=== PATIENT | female | born 1960 | race Caucasian/White ===

== ENCOUNTER 2022-04-01 11:33 | Inpatient (IN) | payer SELFPAY ==
[~2022-04-01] VITALS: Ht 149.9 cm; Wt 54.0 kg
[2022-04-01 11:49] VITALS: BP 127/83
[2022-04-01] MEDS ORDERED: ALBUTEROL SULFATE/IPRATROPIU 3 ML SOL IH ONE (12:05)
--- NOTE | 2022-04-01 12:05 | NUR ---
TO ER BED 12
--- NOTE | 2022-04-01 12:12 | NUR ---
Dr. Zuniga evaluating pt at bedside
--- NOTE | 2022-04-01 12:16 | NUR ---
RT at bedside for ABG and neb tx.
--- NOTE | 2022-04-01 12:20 | NUR ---
Francisco marmolejo in [facility] - 04/01/22 at 1232 by HAYLEE Blood work, kalen swab collected and handed to CPT Hank
--- NOTE | 2022-04-01 12:20 | NUR ---
Blood work, kalen and flu swab collected and handed to CPT Hank
--- NOTE | 2022-04-01 12:20 | NUR ---
61 y/o F BIB self from home c/o left sided abd pain, LLE cramping and SOB. Patient A&Ox4, ambulatory with assistance, states took sleep aid at 10PM last night and has since been "tired and dizzy." Patient noted with SpO2 79% on room air; placed on 15L via NRB. Patient states 10/10 RUQ abd pain, strong/intermittent, radiating to generalized abd. +SOB, denies chest pain, urinary symptoms, fever, chills. Tenderness with palp to general abd. Lung rizvi rales. hospital monitor in place. Bed locked in lowest position, side rails x 1. PMH: gastritis, HTN, asthma, COPD Meds: sleep med, salmeterol inhaler NKDA Sx: cholecystectomy, appendectomy, ovary sx, hand sx.
--- NOTE | 2022-04-01 12:28 | NUR ---
Pt placed onto 4L via N/C by RT SpO2 97%
--- NOTE | 2022-04-01 12:32 | NUR ---
US tech at bedside
[2022-04-01 12:39] LABS: BASOPHILS # (AUTO) 0.1 K/uL (0.00-0.22); BASOPHILS % (AUTO) 0.7 % (0.0-2.0); EOSINOPHILS % (AUTO) 0.4 % (0.0-4.0); HEMATOCRIT 47.5 % (36-48); HEMOGLOBIN 16.3 g/dL (12.0-16.0); LYMPHOCYTES # (AUTO) 1.5 K/uL (2.5-16.5); LYMPHOCYTES % (AUTO) 12.6 % (20.5-51.1); MEAN CORPUSCULAR HEMOGLOBIN 32 pg (27-31); MEAN CORPUSCULAR HGB CONC 34 g/dL (33-37); MEAN CORPUSCULAR VOLUME 93.1 fL (80-94); MONOCYTES # (AUTO) 0.9 K/uL (0.8-1.0); MONOCYTES % (AUTO) 7.8 % (1.7-9.3); NEUTROPHILS # (AUTO) 9.5 K/uL (1.8-7.7); NEUTROPHILS % (AUTO) 78.5 % (42.2-75.2); PLATELET COUNT (AUTO) 191 K/uL (140-450); RED CELL DISTRIBUTION WIDTH 13.9 % (11.6-13.7)
--- NOTE | 2022-04-01 12:43 | NUR ---
Pt transported to CT via rney.
--- NOTE | 2022-04-01 12:53 | NUR ---
Patient returned from CT via gurney and placed back onto flight attendant.
[2022-04-01 12:59] LABS: ALBUMIN 3.1 g/dL (3.4-5.0); ANION GAP 11.8 (8-16); CARBON DIOXIDE 30.8 mmol/L (21-32); CREATININE 0.9 mg/dL (0.6-1.3); POTASSIUM 3.6 mmol/L (3.5-5.1); TOTAL BILIRUBIN 0.7 mg/dL (0.0-1.0)
[2022-04-01 13:00] LABS: LIPASE 99 U/L (73-393)
[2022-04-01 13:03] LABS: ACETAMINOPHEN < 0.5 ug/ml (10-30); SALICYLATE < 2.8 mg/dL (2.8-20.0)
--- NOTE | 2022-04-01 13:16 | NUR ---
PT UNABLE TO PROVIDE URINE AT THIS TIME. PT GIVEN CUP OF WATER AND JUICE PER DR RAHMAN
[2022-04-01] MEDS ORDERED: ZOLPIDEM 5 MG TAB PO PRN (13:40)
[2022-04-01] MEDS ORDERED: DOCUSATE SODIUM 100 MG GELCAP PO PRN (13:40)
[2022-04-01] MEDS ORDERED: HYDROcodone/APAP 7.5/325 MG 1 TAB PO PRN (13:40)
[2022-04-01] MEDS ORDERED: POTASSIUM CHLORIDE 10 MEQ TABER PO PRN (13:40)
[2022-04-01] MEDS ORDERED: guaiFENesin DM 200/20 MG-10 ML 10 ML UDC PO PRN (13:40)
[2022-04-01] MEDS ORDERED: ONDANSETRON 4 MG/2 ML VIAL IM/IVP PRN (13:40)
[2022-04-01] MEDS ORDERED: ALBUTEROL SULFATE/IPRATROPIU 3 ML SOL IH PRN (13:45)
--- NOTE | 2022-04-01 13:58 | NUR ---
Patient desaturated to 89%; noted with N/C off. Placed back onto 4L N/C and repositioned upright in bed. SpO2 95% on 4L
--- NOTE | 2022-04-01 14:01 | NUR ---
Lab at bedside
[2022-04-01] MEDS ORDERED: cefTRIAXone 1,000 MG VIAL ONE (14:04)
[2022-04-01 14:13] LABS: FREE T4 (FREE THYROXINE) 1.04 ng/dL (0.76-1.46); MAGNESIUM 2.2 mg/dL (1.8-2.4); THYROID STIMULATING HORMONE 0.86 uIU/mL (0.34-3.74)
[2022-04-01] MEDS: NACL 0.9% 1,000 ML IV SCH (14:13)
--- NOTE | 2022-04-01 14:30 | NUR ---
Bedpan provided; patient attempted to void with no output.
[2022-04-01] MEDS: ACETAMINOPHEN 325 MG TAB PO PRN (16:11)
--- NOTE | 2022-04-01 16:14 | NUR ---
Patient resting in semi-fowlers position with awake overnight monitor in place. Bed locked in lowest position, side rails x 1. 4L N/C in place SpO2 96%
--- NOTE | 2022-04-01 16:45 | NUR ---
GOT REPORT FROM THE ER NURSE , MELANIE YOUNG IN 2L NC, WAS CONFUSED NOT ABLE TO ANSWER THE QUESTION VIA MANAGING PRINCIPAL. [id number]
--- NOTE | 2022-04-01 16:50 | NUR ---
Patient will be admitted to care of Dr. Lockwood. Admited to Telemetry. Will go to room 105B. Belongings list completed. Report to PATRICE Velasquez.
--- NOTE | 2022-04-01 19:30 | NUR ---
RECEIVED ENDORSEMENT FROM DAY SHIFT NURSE FOR CONTINUITY OF CARE. PT IS WITH PARTIAL CONFUSION. PT IS USING O2 INHALATION VIA NASAL CANULA AT 3LPM.. PT IS AMBULATORY. IV SITE IS AT RIGHT AC 20G, INTACT AND PATENT. PT IS WITH REGULAR DIET. DAUGHTER IS AT BED SIDE.
[2022-04-01 20:00] VITALS: BP 116/70
--- NOTE | 2022-04-01 20:00 | NUR ---
RECEIVED INFO FROM RADIOLOGY, PT WOULD HAVE CT SCAN OF ABDOMEN & PELVIS AND PT WILL BE ON NPO AFTER MIDNIGHT. CONSENT DONE BY DAUGHTER AND IS ON FILE.
--- NOTE | 2022-04-01 20:40 | NUR ---
PT TAKING OFF HER NASAL CANULA REPEATEDLY, PT IS CONFUSE.
--- NOTE | 2022-04-01 21:00 | NUR ---
PT IS NOT COOPERATIVE AND CONFUSE. ATTEMPT TO GET OUT OF BED.
[2022-04-01 21:14] LABS: CHOL/HDL RATIO 3.6 (1-4.5)
[2022-04-01 22:24] LABS: BARBITURATE, URINE NEGATIVE ng/ml (NEG <=200); BENZODIAZEPINE, URINE NEGATIVE ng/mL (NEG <=200); CANNABINOID, URINE NEGATIVE ng/mL (NEG <=50); COCAINE, URINE NEGATIVE ng/mL (NEG <=300); OPIATE, URINE NEGATIVE ng/mL (NEG <=2000); PHENCYCLIDINE SCREEN,URINE NEGATIVE ng/mL (NEG <=25)
--- NOTE | 2022-04-01 23:30 | NUR ---
PT IS WITH CONFUSION. PT ENTER RESTROOM WITHOUT KNOWING WHAT TO DO. GUIDED AND ASSIST PT TO GO BACK TO BED.
[2022-04-02] VITALS: BP 136/87
--- NOTE | 2022-04-02 02:00 | NUR ---
PT IS SLEEPING WELL.
[2022-04-02 04:00] VITALS: BP 128/72
--- NOTE | 2022-04-02 04:30 | NUR ---
PT IS ASLEEP.
[2022-04-02] MEDS: ALBUTEROL SULFATE/IPRATROPIU 3 ML SOL IH SCH ×3 (06:41→19:10)
[2022-04-02 06:54] LABS: BASOPHILS # (AUTO) 0.1 K/uL (0.00-0.22); BASOPHILS % (AUTO) 0.6 % (0.0-2.0); EOSINOPHILS % (AUTO) 0.2 % (0.0-4.0); HEMATOCRIT 46.9 % (36-48); HEMOGLOBIN 16.2 g/dL (12.0-16.0); LYMPHOCYTES # (AUTO) 1.4 K/uL (2.5-16.5); LYMPHOCYTES % (AUTO) 13.3 % (20.5-51.1); MEAN CORPUSCULAR HEMOGLOBIN 32 pg (27-31); MEAN CORPUSCULAR HGB CONC 35 g/dL (33-37); MEAN CORPUSCULAR VOLUME 93.4 fL (80-94); MONOCYTES # (AUTO) 0.7 K/uL (0.8-1.0); MONOCYTES % (AUTO) 6.5 % (1.7-9.3); NEUTROPHILS # (AUTO) 8.4 K/uL (1.8-7.7); NEUTROPHILS % (AUTO) 79.4 % (42.2-75.2); PLATELET COUNT (AUTO) 191 K/uL (140-450); RED BLOOD CELL COUNT(AUTO) 5.02 MIL/uL (4.20-5.40); RED CELL DISTRIBUTION WIDTH 13.7 % (11.6-13.7); WHITE BLOOD COUNT (AUTO) 10.5 K/uL (4.8-10.8)
[2022-04-02] MEDS: NACL 0.9% 1,000 ML IV SCH ×2 (07:05→23:00)
--- NOTE | 2022-04-02 07:15 | NUR ---
BREATHING TREATMENT NOT GIVEN DUE TO PT SLEEPING. WILL CHECK LATER.
--- NOTE | 2022-04-02 07:35 | NUR ---
PT IS ASLEEP AND ON STABLE CONDITION. NO SOB OR DISTRESS. PT TEND TO TAKE OFF THE NASAL CANULA WHILE SLEEPING.
[2022-04-02 07:39] LABS: ANION GAP 12.2 (8-16); CARBON DIOXIDE 32.1 mmol/L (21-32); CREATININE 0.8 mg/dL (0.6-1.3); POTASSIUM 4.3 mmol/L (3.5-5.1)
--- NOTE | 2022-04-02 07:45 | NUR ---
ENDORSED TO DAY SHIFT NURSE FOR CONTINUITY OF CARE. PT IS ASLEEP.
[2022-04-02 08:00] VITALS: BP_SYST 124; BP_SYST 127; BP_DIAS 74
[2022-04-02] MEDS: PANTOPRAZOLE 40 MG TABEC PO SCH (09:44)
--- NOTE | 2022-04-02 09:49 | NUR ---
PATIENT HAS BEEN SCREENED AND CATEGORIZED MODERATE NUTRITION RISK. PATIENT WILL BE SEEN WITHIN 3-5 DAYS OF ADMISSION. REVIEWED BY DIONNE MCLEOD RD
[2022-04-02 12:00] VITALS: BP 130/78
[2022-04-02 12:08] LABS: T4 (THYROXINE) 6.2 ug/dL (4.5-12.0)
[2022-04-02] MEDS: methylPREDNISolone SS 40 MG/ML VIAL IVP SCH ×2 (13:36→21:00)
[2022-04-02 16:00] VITALS: BP 131/75
--- NOTE | 2022-04-02 19:30 | NUR ---
RECEIVED REPORT FROM DAY SHIFT NURSE NUBIA FOR CONTINUITY OF CARE. PATIENT IS A&O X4, BELARUSIAN SPEAKING. PATIENT IS ON 4L NC; BREATHING IS NORMAL WITH SYMMETRICAL RISE AND FALL OF CHEST. IV IS A 20G RAC; RUNNING NS 60. PATIENT IS LYING SEMI-FOWLERS IN BED, VISITING WITH FAMILY. BED IS IN LOWEST POSITION, WHEELS LOCKED, CALL LIGHT IN PLACE. WILL CONTINUE TO OBSERVE PATIENT.
[2022-04-02 20:00] VITALS: BP 123/73
[2022-04-03] VITALS: BP 107/57
[2022-04-03] MEDS: NACL 0.9% 1,000 ML IV SCH (03:20)
[2022-04-03 03:51] LABS: APPEARANCE,URINE CLEAR (CLEAR); BILIRUBIN,URINE NEGATIVE (NEGATIVE); BLOOD, URINE NEGATIVE (NEGATIVE); COLOR,URINE YELLOW (YELLOW); LEUKOCYTE ESTERASE ,URINE NEGATIVE (NEGATIVE); NITRITE, URINE NEGATIVE (NEGATIVE); PH,URINE 5.5 (5.0-9.0); UGLUCOSE NEGATIVE (NEGATIVE)
[2022-04-03 04:00] VITALS: BP 106/68
--- NOTE | 2022-04-03 04:00 | NUR ---
PATIENT HAS SLEPT THROUGHOUT THE NIGHT. PATIENT WOKE UP AND ASKED TO BE UNHOOKED FROM IV TO USE BATHROOM. PATIENT WAS DISCONNECTED AND AMBULATED WITHOUT DIFFICULTY. URINE SAMPLE WAS OBTAINED FROM PATIENT. PATIENT ASKED TO SHOWER SO SHE COULD GET DRESSED; PATRICE BUCKLEY TRANSLATED AND EXPLAINED TO THE PATIENT THAT IT WAS JUST AFTER 0330 IN THE MORNING. PATIENT HADN'T REALIZED AND AGREED TO GO BACK TO BED. PATIENT'S O2 REMAINS BETWEEN 90 -93% ON 4L NC. RT ARY HAS BEEN IN TO SEE PATIENT AND HER O2 SATURATION IS BEING MONITORED WITH BEDSIDE MONITOR. WILL CONTINUE TO OBSERVE PATIENT.
[2022-04-03] MEDS: methylPREDNISolone SS 40 MG/ML VIAL IVP SCH ×3 (05:02→20:48)
[2022-04-03 07:02] LABS: BASOPHILS % (AUTO) 0.2 % (0.0-2.0); HEMATOCRIT 44.3 % (36-48); HEMOGLOBIN 15.2 g/dL (12.0-16.0); LYMPHOCYTES # (AUTO) 0.3 K/uL (2.5-16.5); LYMPHOCYTES % (AUTO) 4.7 % (20.5-51.1); MEAN CORPUSCULAR HEMOGLOBIN 32 pg (27-31); MEAN CORPUSCULAR HGB CONC 34 g/dL (33-37); MEAN CORPUSCULAR VOLUME 92.4 fL (80-94); MONOCYTES # (AUTO) 0.2 K/uL (0.8-1.0); MONOCYTES % (AUTO) 2.2 % (1.7-9.3); NEUTROPHILS # (AUTO) 6.6 K/uL (1.8-7.7); NEUTROPHILS % (AUTO) 92.9 % (42.2-75.2); PLATELET COUNT (AUTO) 190 K/uL (140-450); RED BLOOD CELL COUNT(AUTO) 4.79 MIL/uL (4.20-5.40); RED CELL DISTRIBUTION WIDTH 13.3 % (11.6-13.7); WHITE BLOOD COUNT (AUTO) 7.1 K/uL (4.8-10.8)
--- NOTE | 2022-04-03 07:20 | NUR ---
got report from the night nurse, pt pulled iv and sleeping no [id number]
[2022-04-03 07:25] LABS: ANION GAP 9.5 (8-16); CARBON DIOXIDE 33.1 mmol/L (21-32); CREATININE 0.7 mg/dL (0.6-1.3); POTASSIUM 4.6 mmol/L (3.5-5.1)
--- NOTE | 2022-04-03 07:30 | NUR ---
ENDORSED TO DAY SHIFT NURSE NUBIA FOR CONTINUITY OF CARE. PATIENT IS STABLE.
[2022-04-03 08:00] VITALS: BP 107/74
[2022-04-03] MEDS: ALBUTEROL SULFATE/IPRATROPIU 3 ML SOL IH SCH ×3 (08:08→19:24)
[2022-04-03] MEDS: PANTOPRAZOLE 40 MG TABEC PO SCH (08:09)
[2022-04-03 12:00] VITALS: BP 113/72
[2022-04-03 16:00] VITALS: BP 120/76
--- NOTE | 2022-04-03 18:36 | NUR ---
IV NEW WITH 22G ON LEFT FOREARM.[id number]
--- NOTE | 2022-04-03 19:25 | NUR ---
RECEIVED PT AWAKE ON BED, AAOX4, FRISIAN SPEAKING, DENIES ANY PAIN, NO SOB NOTED, ON O2 2L VIA NC WITH 96% SAT, IVF INFUSING WELL, SAFETY MEASURES IN PLACE, CALL LIGHT WITHIN REACH, DAUGHTER AT BEDSIDE VISITING, PLAN OF CARE DISCUSSED.
[2022-04-03 20:00] VITALS: BP 100/61
[2022-04-04] VITALS: BP 104/70
--- NOTE | 2022-04-04 01:10 | NUR ---
PT AMBULATED TO BR WITH STEADY GAIT, VOIDED FREELY, PT BACK TO BED, SAT-81%, MINIMAL SOB NOTED, PUT BACK ON O2 2L VIA NC, SAT WENT UP TO 93%, MONITORED CLOSELY.
[2022-04-04] MEDS: ACETAMINOPHEN 325 MG TAB PO PRN (01:30)
[2022-04-04 04:00] VITALS: BP 104/62
[2022-04-04] MEDS: methylPREDNISolone SS 40 MG/ML VIAL IVP SCH (04:30)
[2022-04-04] MEDS: ALBUTEROL SULFATE/IPRATROPIU 3 ML SOL IH SCH (06:57)
[2022-04-04 07:30] LABS: BASOPHILS % (AUTO) 0.3 % (0.0-2.0); HEMATOCRIT 39.7 % (36-48); HEMOGLOBIN 13.6 g/dL (12.0-16.0); LYMPHOCYTES # (AUTO) 0.3 K/uL (2.5-16.5); LYMPHOCYTES % (AUTO) 3.3 % (20.5-51.1); MEAN CORPUSCULAR HEMOGLOBIN 32 pg (27-31); MEAN CORPUSCULAR HGB CONC 34 g/dL (33-37); MEAN CORPUSCULAR VOLUME 92.5 fL (80-94); MONOCYTES # (AUTO) 0.5 K/uL (0.8-1.0); MONOCYTES % (AUTO) 4.8 % (1.7-9.3); NEUTROPHILS # (AUTO) 9.6 K/uL (1.8-7.7); PLATELET COUNT (AUTO) 182 K/uL (140-450); RED BLOOD CELL COUNT(AUTO) 4.29 MIL/uL (4.20-5.40); RED CELL DISTRIBUTION WIDTH 13.5 % (11.6-13.7); WHITE BLOOD COUNT (AUTO) 10.5 K/uL (4.8-10.8)
[2022-04-04 07:38] LABS: ANION GAP 8.9 (8-16); CARBON DIOXIDE 32.8 mmol/L (21-32); CREATININE 0.6 mg/dL (0.6-1.3); POTASSIUM 4.7 mmol/L (3.5-5.1)
--- NOTE | 2022-04-04 07:45 | NUR ---
PT SLEEPING, NO SIGNS OF DISTRESS, REPORT GIVEN TO PATRICE JONES FOR CONTINUITY OF CARE.`
[2022-04-04 07:59] LABS: NEUTROPHILS % (AUTO) 91.6 % (42.2-75.2)
[2022-04-04 08:00] VITALS: BP 105/69
[2022-04-04] MEDS: PANTOPRAZOLE 40 MG TABEC PO SCH (09:08)
[2022-04-04] MEDS: NACL 0.9% 1,000 ML IV SCH (09:09)
[2022-04-04] MEDS ORDERED: PRED10TA99 PO (09:31)
[2022-04-04] MEDS ORDERED: LEVO-481 PO (09:32)
[2022-04-04 11:22] VITALS: BP 105/69
== END 2022-04-04 12:03 | disposition home or self-care (01) | DRG 720 ==
LOC: MED 11:33 → MTU 13:44
PROVIDERS: ADMIT Family Medicine; ATTEND Family Medicine
DX: A41.9 Sepsis, unspecified organism (principal); J96.01 Acute respiratory failure with hypoxia; J69.0 Pneumonitis due to inhalation of food and vomit; G93.41 Metabolic encephalopathy; E44.1 Mild protein-calorie malnutrition; J44.1 Chronic obstructive pulmonary disease with (acute) exacerbation; E87.1 Hypo-osmolality and hyponatremia; F17.210 Nicotine dependence, cigarettes, uncomplicated; Z20.822 Contact with and (suspected) exposure to COVID-19; J44.0 Chronic obstructive pulmonary disease with (acute) lower respiratory infection; D75.1 Secondary polycythemia; E87.8 Other disorders of electrolyte and fluid balance, not elsewhere classified; I71.43 Infrarenal abdominal aortic aneurysm, without rupture; Z90.49 Acquired absence of other specified parts of digestive tract; Z68.24 Body mass index [BMI] 24.0-24.9, adult
CPT/HCPCS: 36415; 36600; 70450; 71045; 71275; 76705; 80048; 80053; 80305; 81003; 82150; 82803; 83036; 83690; 83735; 83880; 84100; 84436; 84439; 84443; 84479; 84484; 85025; 85379; 85610; 85730; 87040; 87081; 93005; 94640; 96365; 99291; G0480; G0482; J0696; J1644; J2920; J7060; Q0092; Q9967